=== PATIENT | female | born 1965 | race Two or more races ===

== ENCOUNTER → 2025-02-22 | Outpatient (CLI) | payer OTHER ==
[~2025-02-22] MED LIST: ASPI-1444 PO; LISI-894 PO; METF-1211 PO; PIOG30TA10 PO; PRAV10TA37 PO
== END | disposition home or self-care (01) ==
LOC: RADPV 10:00
PROVIDERS: ATTEND Hospitalist
DX: N18.4 Chronic kidney disease, stage 4 (severe) (principal)
CPT/HCPCS: 76770